=== PATIENT | male | born 1975 ===

== ENCOUNTER 2024-12-22 14:07 | Outpatient (CLI) | payer OTHER ==
[2024-12-22 14:35] LABS: ALBUMIN 4.5 gm/dL (3.4-5.0); BILIRUBIN TOTAL 0.48 mg/dL (0.3-1.2); CALCIUM 9.3 mg/dL (8.5-10.1); CREATININE SERUM 0.78 mg/dL (0.70-1.30); GFR 106.23; GLOBULINA 3.3 G/DL (2.4-3.5); POTASSIUM 3.88 mEq/L (3.5-5.1); TOTAL PROTEIN 7.8 gm/dL (6.4-8.2)
[2024-12-22 16:17] LABS: URINE APPEARANCE Clear; URINE BACTERIA 7.3 uL (0.0-1933); URINE BILIRRUBIN Negative (NEGATIVE); URINE BLOOD Negative; URINE COLOR Yellow; URINE GLUCOSE Negative (NEGATIVE); URINE KETONE Negative (NEGATIVE); URINE LEUKOCYTE Negative; URINE NITRATE Negative; URINE PROTEIN Negative (NEGATIVE); URINE RBC 1.6 uL (0.0-20.8); URINE UROBILINOGEN 0.2 E.U./dl; URINE WBC 9.1 uL (0.0-23.2)
== END 2024-12-22 14:10 | disposition home or self-care (01) ==
LOC: LAB 14:07
PROVIDERS: ATTEND Colon & Rectal Surgery
DX: K60.0 Acute anal fissure (principal); K64.2 Third degree hemorrhoids; K92.2 Gastrointestinal hemorrhage, unspecified; I10 Essential (primary) hypertension

== ENCOUNTER 2024-12-28 11:48 | Day surgery (SDC) | payer OTHER ==
[2024-12-26 10:20] VITALS: BP 150/83
[~2024-12-28] VITALS: Ht 165.1 cm; Wt 90.7 kg
[~2024-12-28 11:48] MED LIST: ATORVASTATIN CA10 MG PO; COZAAR100 MG PO; METFORMIN HCL1000 M2 PO
[2024-12-28] MEDS ORDERED: METRONIDAZOLE/SODIUM CHLORIDE 500 MG/100 ML PIGGYBACK IV ONE (13:22)
[2024-12-28] MEDS ORDERED: CEFTRIAXONE SODIUM 2,000 MG VIAL ONE (13:22)
[2024-12-28] MEDS ORDERED: DIBUCAINE 30 GM TUBE ONE (14:06)
[2024-12-28] MEDS ORDERED: BUPIVACAINE HCL/Mpf 0.5% 10ML VIAL ONE (14:06)
[2024-12-28] MEDS ORDERED: POVIDONE-IODINE 118 ML BOTT TOP ONE (14:07)
[2024-12-28] MEDS ORDERED: LIDOCAINE HCL 1%/EPINEPHRINE 20ML VIAL IJ ONE (14:07)
[2024-12-28] MEDS ORDERED: HEMOSTATIC MATRIX 1 KIT KIT TOP ONE (14:15)
== END 2024-12-28 19:40 | disposition home or self-care (01) ==
LOC: CIR.AMB 11:48
PROVIDERS: ATTEND Colon & Rectal Surgery
DX: K60.0 Acute anal fissure (principal); K62.4 Stenosis of anus and rectum; K64.8 Other hemorrhoids; K64.4 Residual hemorrhoidal skin tags